=== PATIENT | male | born 1940 | race Caucasian/White ===

== ENCOUNTER → 2020-04-02 | Outpatient (CLI) | payer MEDICARE, BC ==
--- NOTE | 2020-04-02 17:07 | RAD ---
PROCEDURE: SHOULDER 2+V RIGHT STUDY DATE: 04/02/2020 CLINICAL INDICATION / HISTORY: Right shoulder pain. TECHNIQUE: Axillary and AP external rotation views with a Y- view were obtained. COMPARISON: None FINDINGS: No fracture, dislocation or bone destruction is identified. There are mild degenerative changes at the right AC joint. Minimal calcifications are seen in relation to the rotator cuff insertion. However there is narrowing of the subacromial space compatible with chronic rotator cuff pathology. There is mild irregularity to the inferior acromial rim. IMPRESSION: Degenerative changes at both the glenohumeral and acromioclavicular joints with evidence of chronic rotator cuff pathology. Electronically signed by: Duran Collazo MD (04/02/2020 5:04 PM) [id number]
== END ==
LOC: RAD 13:27
PROVIDERS: ATTEND Orthopaedic Surgery
DX: M19.011 Primary osteoarthritis, right shoulder (principal); M75.101 Unspecified rotator cuff tear or rupture of right shoulder, not specified as traumatic
CPT/HCPCS: 73030

== ENCOUNTER 2020-08-05 13:42 | Emergency (ER) | payer MEDICARE, BC ==
[~2020-08-05] VITALS: Ht 182.9 cm; Wt 150.7 kg
[2020-08-05 14:10] VITALS: BP 129/57
--- NOTE | 2020-08-05 16:34 | RAD ---
Exam: Ultrasound right upper extremity arterial duplex, limited Indication: Status post heart catheterization, insertion site of forearm Technique: Real-time grayscale and color Doppler images of the right forearm were obtained by the dep reed cityment rod straightener. Comparisons: None FINDINGS: Peak systolic velocities as follows: Proximal radial artery: 75 Mid radial artery: 124 Distal radial artery at cannulization site: 79.3 Proximal ulnar artery: 76 Distal ulnar artery: 91 No focal fluid collection or pseudoaneurysm. IMPRESSION: Arterial vasculature of the right forearm is patent without evidence for pseudoaneurysm or hematoma. Electronically signed by: Cristian Pineda MD (08/05/2020 4:31 PM) [facility]
--- NOTE | 2020-08-05 16:35 | RAD ---
Exam: Right upper extremity venous duplex study INDICATION: Swelling TECHNIQUE: Using a combination of real-time ultrasound imaging and color-flow and pulse Doppler imagi ng techniques along with graded compression and augmentation, duplex evaluation of the deep venous sy stems of right upper extremity was performed. Multiple images were obtained. Findings: There is no sonographic evidence for deep venous thrombosis involving the visualized deep venous stru ctures of the right upper extremity. IMPRESSION: No acute DVT in the right upper extremities. Electronically signed by: Cristian Pineda MD (08/05/2020 4:33 PM) [facility]
--- NOTE | 2020-08-05 16:44 | PHYS DOC ---
Past History Past Medical History: Arthritis, CAD, Diabetes, GERD, High Cholesterol, [place], Prostatitis, Other Additional Past Medical Histor: SHINGLES Past Surgical History: Knee Replacement Alcohol Use: None Adult General Chief Complaint Chief Complaint: POST-OP PROBLEM HPI HPI Patient is a 80-year-old male who presents to the emergency room complaining of swelling to his right wrist with pain moving his right thumb. Patient states that he had a cardiac cath last and immediately afterwards had pain and swelling in his wrist. He called his employee communications intern today who told him to come to the nearest emergency room for further evaluation. Patient states that he has full sensation in his hand. He states that he is able to fully move his hand however it is painful. He denies any other issues. He has not had any discoloration to the hand. He does have some bruising around his radial artery site where he was accessed. Review of Systems Review of Systems Complete ROS is negative unless otherwise documented in HPI Allergies Allergies Allergies Coded Allergies Type Severity Reaction Last Updated Verified ciprofloxacin Allergy Unknown 08/05/20 Yes gatifloxacin Allergy Unknown 08/05/20 Yes latex Allergy Unknown 08/05/20 Yes Physical Exam Physical Exam General: Awake, alert, NAD. Well Nourished, well hydrated. Cooperative HEENT: Atraumatic, EOMI, PERRL, airway patent, moist oral mucosa Neck: Supple, trachea midline Respiratory: CTA bilaterally, normal effort, no wheezing/crackles CV: RRR, no murmur, cap refill <2 GI: Soft, nondistended, nontender, no masses MSK right wrist: 2+ radial pulse, minimal swelling around the wrist, small amount of bruising, full range of motion of the hand, intact sensation Skin: Warm, dry, intact Neuro: A&O x3, speech NL, sensory and motor grossly intact, no focal deficits Psych: Normal affect, normal mood, not suicidal or homicidal Current Patient Data Vital Signs Vital Signs Date Time Temp Pulse Resp B/P (MAP) Pulse Ox O2 Delivery O2 Flow Rate FiO2 08/05/20 14:10 98.0 65 24 129/57 (81) 96 Room Air EKG EKG [] Radiology/Procedures Radiology/Procedures [] Heart Score C/O Chest Pain: N/A Risk Factors: Risk Factors: DM, Current or recent (<one month) smoker, HTN, HLP, family history of CAD, obesity. Risk Scores: Risk Factors: DM, Current or recent (<one month) smoker, HTN, HLP, family history of CAD, obesity. Course & Med Decision Making Course & Med Decision Making Pertinent Labs and Imaging studies reviewed. (See chart for details) Patient is a 80-year-old male who presents to the emergency room with pain and swelling around his right wrist where he had a cardiac cath done. He does have a good pulse. He has intact sensation and motion. Ultrasound was done of his arterial and venous systems which showed no abnormalities. I have discussed elevation and compression with him. Patient's test results and vitals while in the ED were fully reviewed and discussed with the patient. Patient is stable and at this time does not need admission to the hospital. We have discussed strict return precautions and the importance of following up with their Primary Care Physician. Patient stated understanding and was given an opportunity to ask any questions. Patient is in agreement with plan. Dragon Disclaimer Dragon Disclaimer This electronic medical record was generated, in whole or in part, using a voice recognition dictation system. Departure Departure: Impression: Primary Impression: Postprocedural pain of extremity following cardiac catheterization Disposition: 01 DC HOME SELF CARE/HOMELESS Condition: STABLE Referrals: KELLY MCKINNEY MD (PCP) Patient Instructions: Postsurgical Bleeding EVELYN CERRATO MD Aug 05, 2020 16:44
== END 2020-08-05 16:49 | disposition home or self-care (01) ==
LOC: ER 13:42
DX: T82.847A Pain due to cardiac prosthetic devices, implants and grafts, initial encounter (principal); I97.630 Postprocedural hematoma of a circulatory system organ or structure following a cardiac catheterization; K21.9 Gastro-esophageal reflux disease without esophagitis; E78.00 Pure hypercholesterolemia, unspecified; E11.9 Type 2 diabetes mellitus without complications; I25.10 Atherosclerotic heart disease of native coronary artery without angina pectoris; I25.2 Old myocardial infarction; Z88.1 Allergy status to other antibiotic agents; Z91.040 Latex allergy status
CPT/HCPCS: 93931; 93971; 99284-25; 99285-25

== ENCOUNTER 2020-10-03 04:33 | Emergency (ER) | payer MEDICARE, BC ==
[~2020-10-03] VITALS: Ht 182.9 cm; Wt 147.7 kg
--- NOTE | 2020-10-03 05:11 | RAD ---
EXAM: CT HEAD WITHOUT IV CONTRAST CLINICAL HISTORY: Reason: Fall, headache and neck pain COMPARISON: None. TECHNIQUE: Routine CT of the head without contrast. Soft tissues and bone windows were reviewed. PQRS compliance statement - One or more of the following individualized dose reduction techniques wer e utilized for this study: 1. Automated exposure control 2. Adjustment of the mA and/or kV according to patient size 3. Use of iterative reconstruction technique FINDINGS: There is no evidence of hemorrhage, mass or extra-axial fluid collection. So-white differentiation is maintained with no evidence of edema. Subcortical and periventricular f oci of white matter hypoattenuation likely changes of chronic small vessel disease. There is no mass effect or shift of the intracranial structures. The ventricles, basilar cisterns and cortical sulci are normal in size and configuration for the dennis ents stated age. The cerebellum and brainstem are unremarkable. The calvarium demonstrates no evidence of fracture or focal lesion. There is normal aeration of the visualized paranasal sinuses and mastoid air cells. The visualized portions of the orbits are normal. Atherosclerotic calcifications of the intracranial internal carotid and vertebral arteries is seen. O f note volume averaging artifacts are seen in the right frontal region. IMPRESSION: 1. No evidence for acute intracranial process. 2. White matter hypoattenuation likely changes of chronic small vessel disease. EXAM: CT CERVICAL SPINE WITHOUT IV CONTRAST CLINICAL HISTORY: Reason: Fall, headache and neck pain / Spl. Instructions: / History: COMPARISON: None available. TECHNIQUE: Helical CT of the cervical spine was performed. Axial, coronal and sagittal reformatted im ages were also performed. PQRS compliance statement - One or more of the following individualized dose reduction techniques wer e utilized for this study: 1. Automated exposure control 2. Adjustment of the mA and/or kV according to patient size 3. Use of iterative reconstruction technique FINDINGS: Straightening of the normal cervical lordosis. No spondylolisthesis. Severe C5-6, C6-7 disc height lo ss. Moderate C7-T1 and C2-3 disc height loss. Mild C3-4 and C4-5 disc height loss. Atlantodental dege nerative changes are seen. Aortic calcifications are seen. IMPRESSION: No acute fracture or subluxation. Multilevel degenerative changes as above. Electronically signed by: Jeremy Mata MD (10/03/2020 5:08 AM) [facility]
--- NOTE | 2020-10-03 05:15 | PHYS DOC ---
Past History Past Medical History: Arthritis, CAD, Diabetes, GERD, High Cholesterol, [place], Prostatitis, Other Additional Past Medical Histor: SHINGLES Past Surgical History: Knee Replacement Alcohol Use: None General Adult EDM: Chief Complaint: MECHANICAL FALL HPI: HPI: 80-year-old male presents via EMS after fall at home. The patient woke up on the floor. He rolled out of bed and landed on his hardwood floors. He has skin tears to the bilateral forearms. He does not believe he hit his head. He has a small abrasion of the right knee, but is able to walk without difficulty. He is on aspirin and Plavix so he thought he should get checked out. He has no other complaints this time. Review of Systems: Review of Systems: Constitutional: Denies fever or chills Eyes: Denies change in visual acuity HENT: Denies nasal congestion or sore throat Respiratory: Denies cough or shortness of breath Cardiovascular: Denies chest pain or edema GI: Denies abdominal pain, nausea, vomiting, bloody stools or diarrhea : Denies dysuria Musculoskeletal: Denies back pain or joint pain Integument: Skin tears Neurologic: Denies headache, focal weakness or sensory changes Endocrine: Denies polyuria or polydipsia Lymphatic: Denies swollen glands Psychiatric: Denies depression or anxiety Allergies: Allergies: Allergies Coded Allergies Type Severity Reaction Last Updated Verified ciprofloxacin Allergy Unknown 08/05/20 Yes gatifloxacin Allergy Unknown 08/05/20 Yes latex Allergy Unknown 08/05/20 Yes Physical Exam: PE: Constitutional: Well developed, well nourished, morbidly obese, no acute distress, non-toxic appearance. [] HENT: Normocephalic, atraumatic, bilateral external ears normal, oropharynx moist, no oral exudates, nose normal. [] Eyes: PERRLA, EOMI, conjunctiva normal, no discharge. [] Neck: Normal range of motion, no tenderness, supple, no stridor. [] Cardiovascular: Heart rate regular rhythm, no murmur [] Lungs & Thorax: Bilateral breath sounds clear to auscultation [] Abdomen: Bowel sounds normal, soft, no tenderness, no masses, no pulsatile masses. [] Skin: Skin tears of the right and left lower arms. Abrasion of the right knee. Ecchymosis of the right and left forearms, no obvious deformity. [] Back: No tenderness, no CVA tenderness. [] Extremities: No tenderness, no cyanosis, no clubbing, ROM intact, no edema. [] Neurologic: Alert and oriented X 3, normal motor function, normal sensory function, no focal deficits noted. [] Psychologic: Affect normal, judgement normal, mood normal. [] EKG: EKG: [] Radiology/Procedures: Radiology/Procedures: [] Impressions: EXAM: CT HEAD WITHOUT IV CONTRAST CLINICAL HISTORY: Reason: Fall, headache and neck pain COMPARISON: None. TECHNIQUE: Routine CT of the head without contrast. Soft tissues and bone windows were reviewed. PQRS compliance statement - One or more of the following individualized dose reduction techniques were utilized for this study: 1. Automated exposure control 2. Adjustment of the mA and/or kV according to patient size 3. Use of iterative reconstruction technique FINDINGS: There is no evidence of hemorrhage, mass or extra-axial fluid collection. So-white differentiation is maintained with no evidence of edema. Subcortical and periventricular foci of white matter hypoattenuation likely changes of chronic small vessel disease. There is no mass effect or shift of the intracranial structures. The ventricles, basilar cisterns and cortical sulci are normal in size and configuration for the patients stated age. The cerebellum and brainstem are unremarkable. The calvarium demonstrates no evidence of fracture or focal lesion. There is normal aeration of the visualized paranasal sinuses and mastoid air cells. The visualized portions of the orbits are normal. Atherosclerotic calcifications of the intracranial internal carotid and vertebral arteries is seen. Of note volume averaging artifacts are seen in the right frontal region. IMPRESSION: 1. No evidence for acute intracranial process. 2. White matter hypoattenuation likely changes of chronic small vessel disease. EXAM: CT CERVICAL SPINE WITHOUT IV CONTRAST CLINICAL HISTORY: Reason: Fall, headache and neck pain / Spl. Instructions: / History: COMPARISON: None available. TECHNIQUE: Helical CT of the cervical spine was performed. Axial, coronal and sagittal reformatted images were also performed. PQRS compliance statement - One or more of the following individualized dose reduction techniques were utilized for this study: 1. Automated exposure control 2. Adjustment of the mA and/or kV according to patient size 3. Use of iterative reconstruction technique FINDINGS: Straightening of the normal cervical lordosis. No spondylolisthesis. Severe C5- 6, C6-7 disc height loss. Moderate C7-T1 and C2-3 disc height loss. Mild C3-4 and C4-5 disc height loss. Atlantodental degenerative changes are seen. Aortic calcifications are seen. IMPRESSION: No acute fracture or subluxation. Multilevel degenerative changes as above. Electronically signed by: Jeremy Hernandez MD (10/03/2020 5:08 AM) [facility] DICTATED AND SIGNED BY: JEREMY HERNANDEZ MD DATE: 10/03/20 0502 CC: VESNA CABRERA DO; KELLY MCKINNEY MD ~MTH0 0 Heart Score: C/O Chest Pain: N/A Risk Factors: Risk Factors: DM, Current or recent (<one month) smoker, HTN, HLP, family history of CAD, obesity. Risk Scores: Score 0 - 3: 2.5% MACE over next 6 weeks - Discharge Home Score 4 - 6: 20.3% MACE over next 6 weeks - Admit for Clinical Observation Score 7 - 10: 72.7% MACE over next 6 weeks - Early Invasive Strategies Course & Med Decision Making: Course & Med Decision Making Pertinent Labs and Imaging studies reviewed. (See chart for details) The patient's wounds appear to be superficial. None of his skin tears are amenable to suture. We have placed nonadherent clean dressings over them. His head and cervical spine CT are negative for acute findings. The patient's labs are unremarkable. Patient does not have any significant injuries. He is stable for discharge at this time. [] Dragon Disclaimer: Dragliliana Disclaimer: This electronic medical record was generated, in whole or in part, using a voice recognition dictation system. Departure Departure: Impression: Primary Impression: Fall from bed, initial encounter Additional Impressions: Skin tear Abrasion hip/leg Disposition: HOME / SELF CARE / HOMELESS Condition: STABLE Referrals: KELLY MCKINNEY MD (PCP) Patient Instructions: Skin Tear Care, [id number] VESNA CABRERA DO Oct 03, 2020 05:15
[2020-10-03 05:17] LABS: HEMOGLOBIN ISTAT 10.9 gm/dL; POTASSIUM ISTAT 4.8 mmol/L (3.5-5.0)
[2020-10-03 05:27] LABS: BASO # 0.1 x10^3/uL (0.0-0.2); BASO % 1 % (0-3); EOS # 0.8 x10^3/uL (0.0-0.7); EOS % 10 % (0-3); HEMATOCRIT 33.6 % (39.0-53.0); HEMOGLOBIN 10.7 g/dL (13.0-17.5); LYMPH # 2.2 x10^3/uL (1.0-4.8); LYMPH % 26 % (24-48); MEAN CORPUSCULAR HEMOGLOBIN 26 pg (25-35); MEAN CORPUSCULAR HGB CONC 32 g/dL (31-37); MEAN CORPUSCULAR VOLUME 80 fL (79-100); MONO % 12 % (0-9); NEUT # 4.1 x10^3uL (1.8-7.7); NEUT % 50 % (31-73); PLATELET COUNT 227 x10^3/uL (140-400); RED BLOOD COUNT 4.19 x10^6/uL (4.30-5.70); RED CELL DISTRIBUTION WIDTH 16.9 % (11.5-14.5); WHITE BLOOD COUNT 8.2 x10^3/uL (4.0-11.0)
[2020-10-03 05:45] LABS: PLT ESTIMATE ADEQUATE (ADEQUATE)
[2020-10-03 05:55] VITALS: BP 118/58
== END 2020-10-03 05:58 | disposition home or self-care (01) ==
LOC: ER 04:33
DX: S51.812A Laceration without foreign body of left forearm, initial encounter (principal); S51.811A Laceration without foreign body of right forearm, initial encounter; S80.211A Abrasion, right knee, initial encounter; K21.9 Gastro-esophageal reflux disease without esophagitis; E11.9 Type 2 diabetes mellitus without complications; W06.XXXA Fall from bed, initial encounter; Y93.89 Activity, other specified; Y92.092 Bedroom in other non-institutional residence as the place of occurrence of the external cause; Y99.8 Other external cause status
CPT/HCPCS: 36415; 70450; 72125; 80047; 85025; 99285-25

== ENCOUNTER → 2020-10-04 | Outpatient (CLI) | payer MEDICARE, BC ==
[2020-10-03 05:55] VITALS: BP 118/58
--- NOTE | 2020-10-04 10:12 | RAD ---
XR LUMBAR SPINE 2-3V History: Reason: LOW BACK PAIN / Spl. Instructions: / History: Technique: 3 views lumbar spine. Comparison: None. Findings: Mild retrolisthesis L3 on L4. Normal vertebral body height. Mild T12 superior endplate compression de formity. Moderate multilevel degenerative disc changes most prominent L3-L4. Advanced lower lumbar facet arthr opathy. Vascular calcifications. Impression: 1. Chronic appearing T12 superior endplate mild compression fracture. Recommend correlation with poi nt tenderness. If persistent clinical concern, MRI can better evaluate. 2. Moderate multilevel lumbar spondylosis. Electronically signed by: Cole Glez DO (10/04/2020 10:10 AM) [facility]
== END ==
LOC: RAD 08:57
PROVIDERS: ATTEND Internal Medicine
DX: M47.816 Spondylosis without myelopathy or radiculopathy, lumbar region (principal); S22.089A Unspecified fracture of T11-T12 vertebra, initial encounter for closed fracture; X58.XXXA Exposure to other specified factors, initial encounter; Y93.89 Activity, other specified; Y92.89 Other specified places as the place of occurrence of the external cause; Y99.8 Other external cause status
CPT/HCPCS: 72100

== ENCOUNTER → 2020-10-23 | Outpatient (CLI) | payer MEDICARE, BC ==
[2020-10-03 05:55] VITALS: BP 118/58
--- NOTE | 2020-10-23 15:42 | RAD ---
XR FOOT_RIGHT 3 VIEWS Clinical Indication: Reason: ACUTE IDIOPATHIC GOUT OF RIGHT FOOT / Spl. Instructions: / History: Comparison: None. Findings: Prior bony erosion or post surgical change of the distal medial first metatarsal. No significant soft tissue swelling medial to the first metatarsal head. Mild joint space narrowing first MTP. No acute fracture is identified. No dorsal soft tissue swelling of the foot. The mineralization is normal. The re is large os trigonum. IMPRESSION: Old bony erosion or postsurgical change of the medial first metatarsal head. No significant soft tiss ue swelling. Electronically signed by: Axel Silvestre MD (10/23/2020 3:40 PM) [facility]
== END ==
LOC: RAD 10:46
PROVIDERS: ATTEND Internal Medicine
DX: M10.071 Idiopathic gout, right ankle and foot (principal)
CPT/HCPCS: 73630

== ENCOUNTER → 2020-11-22 | Outpatient (CLI) | payer MEDICARE, BC ==
--- NOTE | 2020-11-22 16:28 | RAD ---
EXAMINATION: XR KNEE 3 VIEWS_RT CLINICAL HISTORY: Right knee pain TECHNIQUE: XR KNEE 3 VIEWS_RT Number of Images/Views: 3 COMPARISON: None FINDINGS: Moderate medial and mild lateral compartment narrowing with central canal stenosis. Tricompartmental small marginal osteophytes. No acute fracture. Small suprapatellar enthesophyte. No joint effusion. V ascular calcifications. IMPRESSION: Degenerative changes greatest in the medial compartment. Electronically signed by: Roberto Gutierrez DO (11/22/2020 4:26 PM) [id number]
== END ==
LOC: RAD 10:55
PROVIDERS: ATTEND Orthopaedic Surgery
DX: M25.761 Osteophyte, right knee (principal); M17.11 Unilateral primary osteoarthritis, right knee
CPT/HCPCS: 73562

== ENCOUNTER 2021-02-03 03:50 | Emergency (ER) | payer MEDICARE, BC ==
[~2021-02-03] VITALS: Ht 182.9 cm; Wt 141.0 kg
--- NOTE | 2021-02-03 04:11 | PHYS DOC ---
Past History Past Medical History: Arthritis, CAD, Diabetes, GERD, High Cholesterol, [place], Prostatitis, Other Additional Past Medical Histor: SHINGLES Past Surgical History: Knee Replacement Alcohol Use: None Adult General Chief Complaint Chief Complaint: BACK PAIN OR INJURY [facility] HPI " Patient is a 80-year-old male presenting via EMS for back pain. Reports onset was yesterday without any known or obvious inciting event, mechanism of injury, ingestion, trauma or other concerning exposure. Nothing known makes better, deep respiration and certain twisting movement and direct palpation make worse. Pain is knifelike and focal without radiation. Severity is 10/10. He has taken Tylenol without significant improvement in pain. Reports he struggled through it yesterday and tried to sleep but was awoken when trying to rollover with ongoing pain prompting him to call EMS for transport to our facility. He has extensive comorbid conditions such as diabetes and history of CAD with prior stents. He denies any significant changes in baseline health recently, no recent medication changes. No fever, vision changes, chest pain, ripping or tearing sensation in torso, shortness of breath, cough, abdominal pain, bladder or bowel changes, motor or sensory or neuro function changes Review of Systems Review of Systems Fourteen body systems of review of systems have been reviewed. See HPI for pertinent positives and negative responses, other campos all other systems are negative, non-pertinent or non-contributory Allergies Allergies Allergies Coded Allergies Type Severity Reaction Last Updated Verified ciprofloxacin Allergy Unknown 02/03/21 Yes gatifloxacin Allergy Unknown 02/03/21 Yes latex Allergy Unknown 02/03/21 Yes Physical Exam Physical Exam Constitutional: Well developed, well nourished, no acute distress, non-toxic appearance. HENT: Normocephalic, atraumatic, bilateral external ears normal, oropharynx moist, no oral exudates, nose normal. Eyes: PERRLA, EOMI, conjunctiva normal, no discharge. Neck: Normal range of motion, no tenderness, supple, no stridor. Cardiovascular: Heart rate regular, sinus rhythm, no murmurs rubs or gallops Lungs & Thorax: Bilateral breath sounds clear to auscultation Abdomen: Bowel sounds normal, soft, no tenderness, no masses, no pulsatile masses. Nonsurgical abdomen, no peritoneal signs Skin: Warm, dry, no erythema, no rash. Back: No tenderness, no CVA tenderness. Extremities: No tenderness, no cyanosis, no clubbing, ROM intact, no edema. Neurologic: Alert and oriented X 3, grossly normal motor & sensory function, no focal deficits noted. Psychologic: Anxious affect and mood Current Patient Data Vital Signs Vital Signs Date Time Temp Pulse Resp B/P (MAP) Pulse Ox O2 Delivery O2 Flow Rate FiO2 02/03/21 04:05 97.8 72 27 160/66 (97) 95 Vital Signs Date Time Temp Pulse Resp B/P (MAP) Pulse Ox O2 Delivery O2 Flow Rate FiO2 02/03/21 04:05 97.8 72 27 160/66 (97) 95 Lab Results Laboratory Tests Test 02/03/21 04:25 White Blood Count 10.0 x10^3/uL Red Blood Count 4.38 x10^6/uL Hemoglobin 11.0 g/dL Hematocrit 35.1 % Mean Corpuscular Volume 80 fL Mean Corpuscular Hemoglobin 25 pg Mean Corpuscular Hemoglobin Concent 31 g/dL Red Cell Distribution Width 16.3 % Platelet Count 218 x10^3/uL Neutrophils (%) (Auto) 60 % Lymphocytes (%) (Auto) 21 % Monocytes (%) (Auto) 11 % Eosinophils (%) (Auto) 7 % Basophils (%) (Auto) 1 % Neutrophils # (Auto) 6.0 x10^3uL Lymphocytes # (Auto) 2.1 x10^3/uL Monocytes # (Auto) 1.1 x10^3/uL Eosinophils # (Auto) 0.7 x10^3/uL Basophils # (Auto) 0.1 x10^3/uL Sodium Level 140 mmol/L Potassium Level 4.5 mmol/L Chloride Level 104 mmol/L Carbon Dioxide Level 26 mmol/L Anion Gap 10 Blood Urea Nitrogen 37 mg/dL Creatinine 1.1 mg/dL Estimated GFR (Cockcroft-Gault) 64.7 Glucose Level 133 mg/dL Calcium Level 8.9 mg/dL Troponin I Quantitative < 0.017 ng/mL Current Medications Medications (Trade) Dose Ordered Sig/Giana Route PRN Reason Start Time Stop Time Status Last Admin Dose Admin Acetaminophen (Tylenol) 1,000 mg 1X ONCE PO 02/03/21 04:15 02/03/21 04:16 DC 02/03/21 04:16 Orphenadrine Citrate (Norflex) 60 mg 1X ONCE IM 02/03/21 04:30 02/03/21 04:31 DC 02/03/21 04:30 EKG EKG EKG ordered and interpreted by myself at 0352 hrs. as sinus rhythm at 60 bpm, prolonged QRS at 158 otherwise unremarkable intervals, left axis deviation, T wave inversion noted in leads V2, V3, V4 and V5, no STEMI Radiology/Procedures Radiology/Procedures Single view chest and right-sided rib study dated 02/03/2021. No comparisons available. Clinical indication: Point tenderness at T7. FINDINGS: Single upright view of the chest shows normal heart and mediastinal contours. There is patchy and linear perihilar opacities. No consolidation or pleural effusion. No pneumothorax. Dedicated views of right-sided ribs show no evidence of displaced right rib fracture. No apparent acute bony abnormality. IMPRESSION: 1. Patchy and linear perihilar opacity, atelectasis versus early bronchial inflammatory process. 2. No evidence of displaced right rib fracture. Electronically signed by: Micheal Webber MD (02/03/2021 5:08 AM) [facility] Heart Score C/O Chest Pain: No HEART Score for Chest Pain: HEART Score for Chest Pain Response (Comments) Value History Slighlty/Non-Suspicious 0 ECG Nonspecific Repolarizatio 1 Age > 65 2 Risk Factors >3 Risk Factors or Hx CAD 2 Troponin < Normal Limit 0 Total 5 Risk Factors: Risk Factors: DM, Current or recent (<one month) smoker, HTN, HLP, family hi story of CAD, obesity. Risk Scores: Risk Factors: DM, Current or recent (<one month) smoker, HTN, HLP, family history of CAD, obesity. Course & Med Decision Making Course & Med Decision Making ABCs unremarkable History physical exam and comprehensive ER work-up nonconcerning for any emergent or surgical issues I disclosed entirety of ER work-up with patient that was again nonconcerning. Patient's physical exam findings consistent with acute paraspinal muscle spasm that resolved with Tylenol and IM muscle relaxer I discussed limited need for further diagnostic work-up and/or need for hospitalization at this point. Continued supportive care advised. I educated patient and at bedside extensively on supportive care practices such as heat, Tylenol use for pain, stretches and PCP follow-up for potential referral Strict return precautions were discussed with good understanding verbalized by patient and , all questions and concerns were addressed prior to ER departure in improved condition Dragon Disclaimer Naomi Disclaimer This electronic medical record was generated, in whole or in part, using a voice recognition dictation system. Departure Departure: Impression: Primary Impression: Spasm of thoracic back muscle Disposition: HOME / SELF CARE / HOMELESS Condition: STABLE Referrals: KELLY MCKINNEY MD (PCP) Additional Instructions: It is likely that you have experienced a sprain/strain to a large paraspinal muscle that is causing you pain. The best treatment for this injury is continued range of motion with stretching, Tylenol as needed for pain and heat application as tolerated. Please follow up with your primary doctor. Please contact your primary care physician first thing this morning to review ER visit and need for close outpatient follow-up as further diagnostic work-up, and office intervention and potential referrals might be indicated. Please return to the ER if any concerning signs or symptoms present prior to outpatient follow-up. It was a pleasure to take care of you and I wish you the best going forward SEDRICK PRATT DO Feb 03, 2021 04:11
[2021-02-03] MEDS ORDERED: ACETAMINOPHEN 500 MG TABLET PO ONE (04:15)
--- NOTE | 2021-02-03 04:21 | EKG ---
[address] [address] Test Date: 2021-02-03 Test Time: 03:50:49 Pat Name: TARA RODRÍGUEZ Department: Room: Gender: M [employer]: : [id number] Requested By: SEDRICK PRATT Order Number: [id number] Reading MD: Jr Grace Measurements Intervals [place] Rate: 60 P: 0 ME: 188 QRS: -7 QRSD: 158 T: -7 QT: 424 QTc: 424 Interpretive Statements SINUS RHYTHM LEFTWARD AXIS RIGHT BUNDLE BRANCH BLOCK Electronically Signed On 02-04-2021 13:42:33 CDT by Jr Grace
[2021-02-03] MEDS ORDERED: ORPHENADRINE CITRATE 60 MG/2 ML VIAL. IM ONE (04:30)
[2021-02-03 04:38] LABS: BASO # 0.1 x10^3/uL (0.0-0.2); BASO % 1 % (0-3); EOS # 0.7 x10^3/uL (0.0-0.7); EOS % 7 % (0-3); HEMATOCRIT 35.1 % (39.0-53.0); LYMPH # 2.1 x10^3/uL (1.0-4.8); LYMPH % 21 % (24-48); MEAN CORPUSCULAR HEMOGLOBIN 25 pg (25-35); MEAN CORPUSCULAR HGB CONC 31 g/dL (31-37); MEAN CORPUSCULAR VOLUME 80 fL (79-100); MONO # 1.1 x10^3/uL (0.0-1.1); MONO % 11 % (0-9); NEUT % 60 % (31-73); PLATELET COUNT 218 x10^3/uL (140-400); RED BLOOD COUNT 4.38 x10^6/uL (4.30-5.70); RED CELL DISTRIBUTION WIDTH 16.3 % (11.5-14.5)
[2021-02-03 04:46] LABS: CALCIUM 8.9 mg/dL (8.5-10.1); CREATININE 1.1 mg/dL (0.7-1.3); GFR 64.7; POTASSIUM 4.5 mmol/L (3.5-5.1)
--- NOTE | 2021-02-03 05:10 | RAD ---
Single view chest and right-sided rib study dated 02/03/2021. No comparisons available. Clinical indication: Point tenderness at T7. FINDINGS: Single upright view of the chest shows normal heart and mediastinal contours. There is patchy and shivani ear perihilar opacities. No consolidation or pleural effusion. No pneumothorax. Dedicated views of right-sided ribs show no evidence of displaced right rib fracture. No apparent acu te bony abnormality. IMPRESSION: 1. Patchy and linear perihilar opacity, atelectasis versus early bronchial inflammatory process. 2. No evidence of displaced right rib fracture. Electronically signed by: Micheal Webber MD (02/03/2021 5:08 AM) [facility]
[2021-02-03 05:37] VITALS: BP 112/52
== END 2021-02-03 05:45 | disposition home or self-care (01) ==
LOC: ER 03:50
DX: M62.830 Muscle spasm of back (principal); M54.6 Pain in thoracic spine; M19.90 Unspecified osteoarthritis, unspecified site; I25.10 Atherosclerotic heart disease of native coronary artery without angina pectoris; E11.9 Type 2 diabetes mellitus without complications; K21.9 Gastro-esophageal reflux disease without esophagitis; E78.00 Pure hypercholesterolemia, unspecified; I25.2 Old myocardial infarction; Z88.1 Allergy status to other antibiotic agents; Z91.040 Latex allergy status
CPT/HCPCS: 36415; 71101; 80048; 84484; 85025; 93005; 96372; 99285; J2360

== ENCOUNTER 2021-04-07 09:58 | Emergency (ER) | payer MEDICARE, BC ==
[~2021-04-07] VITALS: Ht 182.9 cm; Wt 136.4 kg
[2021-04-07 10:21] VITALS: BP 134/68
--- NOTE | 2021-04-07 11:04 | RAD ---
XR FOOT_RIGHT 3 VIEWS History: Reason: pain / Spl. Instructions: / History: Technique: 3 views right foot. Comparison: October 23, 2020 Findings: Chronic deformity of the first metatarsal, unchanged. Mild first MTP DJD. No dislocation. No acute fr acture. Mild midfoot DJD. Dorsal foot soft tissue swelling. Unchanged well-corticated ossification ad jacent to the second proximal phalanx. Chronic fourth metatarsal fracture. Impression: 1. No acute osseous abnormality. 2. Dorsal foot soft tissue swelling. Electronically signed by: Cole Glez DO (04/07/2021 11:02 AM) [id number]
--- NOTE | 2021-04-07 11:21 | PHYS DOC ---
Past History Past Medical History: Arthritis, CAD, Diabetes, GERD, High Cholesterol, [place], Prostatitis, Other Additional Past Medical Histor: SHINGLES, TREMORS, ENLARGED PROSTATE Past Surgical History: Angioplasty, Knee Replacement, Other Additional Past Surgical Histo: CARDIAC STENTS,TURP Alcohol Use: None General Adult EDM: Chief Complaint: FOOT INJURY PAIN HPI: HPI: 80-year-old male presents with right midfoot pain. The pain is greatest at the posterior third of the arch. He has some swelling, but denies trauma or falls. No erythema or warmth. The patient has a history of gout but has been taking his medication as prescribed. The pain is greatest when he puts weight on that foot. He denies stepping on foreign object. He has no other complaints this time. Review of Systems: Review of Systems: Constitutional: Denies fever or chills Eyes: Denies change in visual acuity HENT: Denies nasal congestion or sore throat Respiratory: Denies cough or shortness of breath Cardiovascular: Denies chest pain or edema GI: Denies abdominal pain, nausea, vomiting, bloody stools or diarrhea : Denies dysuria Musculoskeletal: Right foot pain Integument: Denies rash Neurologic: Denies headache, focal weakness or sensory changes Endocrine: Denies polyuria or polydipsia Lymphatic: Denies swollen glands Psychiatric: Denies depression or anxiety Allergies: Allergies: Allergies Coded Allergies Type Severity Reaction Last Updated Verified levofloxacin Allergy Intermediate 04/07/21 Yes ciprofloxacin Allergy Unknown 02/03/21 Yes gatifloxacin Allergy Unknown 02/03/21 Yes icosapent ethyl Allergy Unknown 04/07/21 Yes latex Allergy Unknown 02/03/21 Yes Physical Exam: PE: Constitutional: Well developed, well nourished, no acute distress, non-toxic ap pearance. [] HENT: Normocephalic, atraumatic, bilateral external ears normal, oropharynx moist, no oral exudates, nose normal. [] Eyes: PERRLA, EOMI, conjunctiva normal, no discharge. [] Neck: Normal range of motion, no tenderness, supple, no stridor. [] Cardiovascular: Heart rate regular rhythm, no murmur [] Lungs & Thorax: Bilateral breath sounds clear to auscultation [] Abdomen: Bowel sounds normal, soft, no tenderness, no masses, no pulsatile masses. [] Skin: Warm, dry, no erythema, no rash. [] Back: No tenderness, no CVA tenderness. [] Extremities: Tenderness medial, posterior arch, mild dorsal swelling, no erythema, warmth, ecchymosis. [] Neurologic: Alert and oriented X 3, normal motor function, normal sensory function, no focal deficits noted. [] Psychologic: Affect normal, judgement normal, mood normal. [] Current Patient Data: Vital Signs: Vital Signs Date Time Temp Pulse Resp B/P (MAP) Pulse Ox O2 Delivery O2 Flow Rate FiO2 04/07/21 10:21 98.3 95 20 134/68 (90) 98 Room Air EKG: EKG: [] Radiology/Procedures: Radiology/Procedures: [] Heart Score: C/O Chest Pain: N/A Risk Factors: Risk Factors: DM, Current or recent (<one month) smoker, HTN, HLP, family history of CAD, obesity. Risk Scores: Score 0 - 3: 2.5% MACE over next 6 weeks - Discharge Home Score 4 - 6: 20.3% MACE over next 6 weeks - Admit for Clinical Observation Score 7 - 10: 72.7% MACE over next 6 weeks - Early Invasive Strategies Course & Med Decision Making: Course & Med Decision Making Pertinent Labs and Imaging studies reviewed. (See chart for details) There is some dorsal foot soft tissue swelling, but no acute osseous abnormality. See official read for details. This does not appear to be a gout flare. It could be a midfoot sprain. I have advised supportive care and watchful waiting. If his symptoms do not improve he will follow-up with his primary doctor as needed. He is stable for discharge at this time. [] Dragon Disclaimer: Dragon Disclaimer: This electronic medical record was generated, in whole or in part, using a voice recognition dictation system. Departure Departure: Impression: Primary Impression: Right foot sprain Qualified Codes: S93.601A - Unspecified sprain of right foot, initial encounter Disposition: HOME / SELF CARE / HOMELESS Condition: STABLE Referrals: KELLY MCKINNEY MD (PCP) Patient Instructions: Foot Sprain-Brief VESNA CABRERA DO Apr 07, 2021 11:21
== END 2021-04-07 11:40 | disposition home or self-care (01) ==
LOC: ER 09:58
DX: S93.601A Unspecified sprain of right foot, initial encounter (principal); M19.90 Unspecified osteoarthritis, unspecified site; I25.10 Atherosclerotic heart disease of native coronary artery without angina pectoris; E11.9 Type 2 diabetes mellitus without complications; K21.9 Gastro-esophageal reflux disease without esophagitis; E78.00 Pure hypercholesterolemia, unspecified; I25.2 Old myocardial infarction; Z88.1 Allergy status to other antibiotic agents; Z91.040 Latex allergy status; Z88.8 Allergy status to other drugs, medicaments and biological substances; X58.XXXA Exposure to other specified factors, initial encounter; Y93.89 Activity, other specified; Y92.89 Other specified places as the place of occurrence of the external cause; Y99.8 Other external cause status
CPT/HCPCS: 73630; 99283

== ENCOUNTER 2021-09-09 16:39 | Emergency (ER) | payer MEDICARE ==
[~2021-09-09] VITALS: Ht 182.9 cm; Wt 130.5 kg
[2021-09-09 16:54] VITALS: BP 142/67
--- NOTE | 2021-09-09 17:13 | PHYS DOC ---
Past History Past Medical History: Arthritis, CAD, Diabetes, GERD, High Cholesterol, [place], Prostatitis, Other Additional Past Medical Histor: SHINGLES, TREMORS, ENLARGED PROSTATE Past Surgical History: Angioplasty, Knee Replacement, Other Additional Past Surgical Histo: CARDIAC STENTS,TURP Alcohol Use: None Adult General Chief Complaint Chief Complaint: WRIST PAIN HPI HPI Patient presents with right wrist pain increasing over the last numerous days. Patient walks with a walker and states he constantly puts significant weight on his arms, but denies any definite known specific injury. Patient denies any redness, no swelling, no discoloration. Patient reports pain is to the anterior aspect of the wrist region, patient reports he developed wrist pain after cardiac catheterization approximately a year ago, although he has had very little discomfort or pain until very recently. Review of Systems Review of Systems Constitutional: Denies fever or chills [] Eyes: Denies change in visual acuity, redness, or eye pain [] HENT: Denies nasal congestion or sore throat [] Respiratory: Denies cough or shortness of breath [] Cardiovascular: No additional information not addressed in HPI [] GI: Denies abdominal pain, nausea, vomiting, bloody stools or diarrhea [] : Denies dysuria or hematuria [] Musculoskeletal: Right wrist pain Integument: Denies rash or skin lesions [] Neurologic: Denies headache, focal weakness or sensory changes [] Endocrine: Denies polyuria or polydipsia [] All other systems were reviewed and found to be within normal limits, except as documented in this note. Allergies Allergies Allergies Coded Allergies Type Severity Reaction Last Updated Verified levofloxacin Allergy Intermediate 04/07/21 Yes ciprofloxacin Allergy Unknown 02/03/21 Yes gatifloxacin Allergy Unknown 02/03/21 Yes icosapent ethyl Allergy Unknown 04/07/21 Yes latex Allergy Unknown 02/03/21 Yes Physical Exam Physical Exam Constitutional: Well developed, well nourished, no acute distress, non-toxic appearance. [] HENT: Normocephalic, atraumatic, bilateral external ears normal, oropharynx moist, no oral exudates, nose normal. [] Eyes: PERRLA, EOMI, conjunctiva normal, no discharge. [] Neck: Normal range of motion, no tenderness, supple, no stridor. [] Cardiovascular:Heart rate regular rhythm, no murmur [] Lungs & Thorax: Bilateral breath sounds clear to auscultation [] Abdomen: Bowel sounds normal, soft, no tenderness, no masses, no pulsatile masses. [] Skin: Warm, dry, no erythema, no rash. [] Back: No tenderness, no CVA tenderness. [] Extremities: Right wrist with tender palpation over the anterior or palmar side distal wrist region. There is no erythema, no warmth, no pain with passive extension of the fingers. No significant obvious swelling or effusion. Normal radial and ulnar pulses with normal distal cap refill Neurologic: Alert and oriented X 3, normal motor function, normal sensory function, no focal deficits noted. [] Psychologic: Affect normal, judgement normal, mood normal. [] Current Patient Data Vital Signs Vital Signs Date Time Temp Pulse Resp B/P (MAP) Pulse Ox O2 Delivery O2 Flow Rate FiO2 09/09/21 16:54 98.0 71 20 142/67 (92) 95 Room Air EKG EKG [] Radiology/Procedures Radiology/Procedures [] Heart Score C/O Chest Pain: No Risk Factors: Risk Factors: DM, Current or recent (<one month) smoker, HTN, HLP, family history of CAD, obesity. Risk Scores: Risk Factors: DM, Current or recent (<one month) smoker, HTN, HLP, family history of CAD, obesity. Course & Med Decision Making Course & Med Decision Making Patient with significant right wrist pain. Patient does walk with a walker and is constantly putting pressure on the right wrist. No specific injury is noted, we will pursue x-ray imaging. Other considerations given the location of the pain could possibly be carpal tunnel syndrome although the patient does not report radiating pain into the hand and there is no numbness or tingling reported. Patient does suffer from gout and gouty arthritis also possible, but there is no erythema no warmth. Septic arthritis always in consideration, the patient with very little pain with passive range of motion other than very sig nificant extension, there is also no swelling or warmth of the patient is afebrile and nontoxic in appearance. 1807-patient with x-ray imaging with significant calcifications likely chondrocalcinosis, patient does have more significant calcification however in the anterior carpal region, this does not directly correlate with the area of very significant pain overall, and very likely represents an avulsion fracture. Patient will be splinted in the emergency department, discharged home with symptom control, and close follow-up as outpatient with orthopedic surgery. Return precautions discussed Naomi Disclaimer Naomi Disclaimer This electronic medical record was generated, in whole or in part, using a voice recognition dictation system. Departure Departure: Impression: Primary Impression: Avulsion fracture of right wrist Disposition: HOME / SELF CARE / HOMELESS Condition: STABLE Referrals: KELLY MCKINNEY MD (PCP) [facility] [phone] Patient Instructions: Wrist Fracture Additional Instructions: Wear splint as instructed. Take medication as prescribed. Contact orthopedic clinic for outpatient evaluation and further evaluation Scripts Hydrocodone Bit/Acetaminophen (HYDROCODONE-APAP 5-325 ) 1 Each Tablet 1 TAB PO PRN Q6HRS PRN for PAIN for 7 Days, #14 TAB 0 Refills Prov: MISTY STEPHENS MD 09/09/21 MISTY STEPHENS MD September 09, 2021 17:13
--- NOTE | 2021-09-09 17:47 | RAD ---
EXAM: PA, oblique and lateral views right wrist DATE: 09/09/2021 5:21 PM INDICATION: Reason: R wrist pain / Spl. Instructions: / History: . COMPARISON: No Prior FINDINGS: 1. Chondrocalcinosis. Thumb CMC DJD. 2. Small calcification at the palmar aspect of the proximal carpal row possibly avulsion injury alth ough could also represent chondrocalcinosis. This can be correlated with patient's pain/symptoms. 3. Atherosclerotic vascular calcifications are seen. Electronically signed by: Jeremy Mata MD (09/09/2021 5:45 PM) [facility]
[2021-09-09] MEDS ORDERED: HYDR-2155 PO (18:10)
== END 2021-09-09 18:36 | disposition home or self-care (01) ==
LOC: ER 16:39
DX: S62.101A Fracture of unspecified carpal bone, right wrist, initial encounter for closed fracture (principal); M19.90 Unspecified osteoarthritis, unspecified site; I25.10 Atherosclerotic heart disease of native coronary artery without angina pectoris; E11.9 Type 2 diabetes mellitus without complications; K21.9 Gastro-esophageal reflux disease without esophagitis; E78.00 Pure hypercholesterolemia, unspecified; I25.2 Old myocardial infarction; Z88.1 Allergy status to other antibiotic agents; Z91.040 Latex allergy status; Z88.8 Allergy status to other drugs, medicaments and biological substances; X58.XXXA Exposure to other specified factors, initial encounter; Y93.89 Activity, other specified; Y92.89 Other specified places as the place of occurrence of the external cause; Y99.8 Other external cause status
CPT/HCPCS: 29125; 73110; 99284